=== PATIENT | male | born 2000 | race Hispanic/Latino ===

== ENCOUNTER 2024-06-08 20:49 | Emergency (ER) | payer SELFPAY ==
[~2024-06-08 20:49] MED LIST: Iopamidol-370 76% 500 ML MDV (1 ML CHARGE) ONE
[2024-06-08] MEDS ORDERED: Morphine 4 MG/ML VIAL ONE ×2 (21:21→22:39)
[2024-06-08] MEDS ORDERED: CEFAZOLIN 2 GM VIAL ONE (21:22)
[2024-06-08] MEDS ORDERED: Boostrix 0.5 ML (Tdap) VIAL (>/=7 yrs of age) ONE (21:22)
[2024-06-08] MEDS ORDERED: Sodium Chloride 0.9% 100 ML ONE (21:22)
[2024-06-08 21:44] LABS: #Basophils 0.03 10x3/uL (0.0-0.2); %Basophils 0.2 % (0.0-1.0); %Eosinophils 0.4 % (0.0-10.0); %Lymphocytes 8.2 % (21.0-51.0); %Monocytes 4.7 % (0.0-10.0); %Neutrophils 85.9 % (42.0-75.0); Hematocrit 40.1 % (42.0-52.0); Hemoglobin 13.7 g/dL (14.0-18.0); Mean Corpuscular HGB CONC 34.2 g/dL (32.0-36.0); Mean Corpuscular Hemoglobin 30.3 pg (27.0-31.0); Mean Corpuscular Volume 88.7 fL (78.0-98.0); Mean Platelet Volume 11.6 fL (7.4-10.4); Platelet Count 159 10x3/uL (130-400); RBC Distribution Width 12.7 % (11.5-14.5); Red Blood Cell (RBC) Count 4.52 mill/uL (4.70-6.10)
[2024-06-08 22:00] LABS: INR-International Normal Ratio 1.1; Prothrombin Time 14.2 sec (12.0-14.7)
[2024-06-08 22:01] LABS: PTT 26.6 sec (22.9-36.1)
[2024-06-08 22:02] LABS: ALT (SGPT) 24 U/L (8-55); AST (SGOT) 54 U/L (5-34); Albumin 3.9 g/dL (3.5-5.0); Alkaline Phosphatase 58 U/L (40-110); Anion Gap 15 mmol/L (10-20); BUN (Urea Nitrogen) 7 mg/dL (8.9-20.6); Bilirubin, Total 0.6 mg/dL (0.2-1.2); Calc. Creatinine Clearance 0 mL/min (70-130); Calcium 8.3 mg/dL (7.8-10.44); Carbon Dioxide 22 mmol/L (22-29); Chloride 103 mmol/L (98-107); Estimated GFR 129; Globulin 3.7 g/dL (2.4-3.5); Glucose 103 mg/dL (70-105); Potassium 3.6 mmol/L (3.5-5.1); Protein, Total 7.6 g/dL (6.0-8.3); Sodium 136 mmol/L (136-145)
[2024-06-09 00:38] LABS: Lactic Acid 1.91 mmol/L (0.5-2.2)
== END 2024-06-09 00:33 | disposition short-term general hospital (02) ==
LOC: EDBD 20:49 → ERS 20:49
DX: S22.41XA Multiple fractures of ribs, right side, initial encounter for closed fracture (principal); S82.251A Displaced comminuted fracture of shaft of right tibia, initial encounter for closed fracture; S02.102A Fracture of base of skull, left side, initial encounter for closed fracture; S02.40DA Maxillary fracture, left side, initial encounter for closed fracture; S02.40CA Maxillary fracture, right side, initial encounter for closed fracture; S01.81XA Laceration without foreign body of other part of head, initial encounter; S06.5X0A Traumatic subdural hemorrhage without loss of consciousness, initial encounter; S27.322A Contusion of lung, bilateral, initial encounter; J93.9 Pneumothorax, unspecified; V00.148A Other scooter (nonmotorized) accident, initial encounter; Z23 Encounter for immunization
CPT/HCPCS: 27752; 27781; 36415; 70450; 70486; 71045; 71260; 72125; 74177; 80053; 83605; 85025; 85610; 85730; 86850; 86900; 86901; 90471; 90715; 93005; 94760; 96365; 96374; 96376; G0390; J2272; Q9967